=== PATIENT | male | born 1995 | race Caucasian/White ===

== ENCOUNTER 2023-07-10 13:25 | Outpatient (AMB) | payer OTHER, SELFPAY ==
--- NOTE | 2023-07-10 13:34 | A.OFFPC_ITS ---
Vital Signs 07/10/23 13:36 Height 5 ft 5 in Weight 243 lb BMI 40.4 BP 100/62 Blood Pressure Location Lt brachial Position Sitting Respiration 17 Pulse 80 Pulse Source Pulse Oximeter Pulse Oximetry (%) 99 Oxygen Delivery Method Room Air Intake Visit Reasons: Annual Exam Intake Note: Patient is here today for a physical. 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 Manager Required: No Accompanied by: Self / Same As Patient Allergies No Known Allergies Allergy (Verified 07/10/23 13:47) Medication List - Last Reconciled 07/10/23 by Keanu Torre PA-C clonidine HCl 0.1 mg PO TID lorazepam 1 mg PO BID PRN 5 days topiramate 25 mg PO BEDTIME Tobacco use date assessed: 07/10/23 Dental Screening Dental Screen Date: 07/10/23 Did you have a dental visit in the last 12 months?: No Did you have a dental problem in the last 6 months where you did not have access to dental care?: No Was dental information given to patient?: Yes HPI Annual Exam HPI Details Patient is a 28-year-old male here today for routine annual physical. Patient has a past medical history significant for bipolar disorder, GERD and tobacco dependency. .. Bipolar disorder: Seeing a Psychiatrist ( at [facility])- [place]. He continues on clonidine. Recently started on trazodone. He reports he has been suffering with lower lumbar spine pain for quite a while now, has seen specialist and gotten injections in the physical therapy though has not found it to be effective. He is interested in seeing pain management for pain reduction modality. Vaccines: Up-to-date with COVID, declines flu and tetanus vaccines [facility] Surgical History History of hand surgery History of aortoiliofemoral vascular bypass Family History Mother No problems noted. Father No problems noted. Social History (Updated 07/10/23 @ 13:52 by Keanu Torre PA-C) Housing: House Alcohol intake: current Alcohol intake frequency: holidays/special occasions only Patient Tobacco Use Status: Current everyday Tobacco user Cigarette Packs Per Day: 1 Cigarettes Per Day: 1 e-Cigarette/Vaping Use: Currently Using Second Hand Smoke Exposure: No Substance Use Type: Crack/Cocaine service: No Current occupational status: unemployed and disabled Cognitive needs: No Hearing needs: No Vision needs: No Questionnaire PHQ-9 Over the last 2 weeks, how often have you been bothered by any of the following problems? 1. Little interest or pleasure in doing things: more than half the days 2. Feeling down, depressed, or hopeless: more than half the days 3. Trouble falling or staying asleep, or sleeping too much: several days 4. Feeling tired or having little energy: more than half the days 5. Poor appetite or overeating: nearly every day 6. Feeling bad about yourself - or that you are a failure or have let yourself or your family down: nearly every day 7. Trouble concentrating on things, such as reading the newspaper or watching television: nearly every day 8. Moving or speaking so slowly that other people could have noticed. Or the opposite - being so fidgety or restless that you have been moving around a lot more than usual: more than half the days 9. Thoughts that you would be better off or of hurting yourself in some way: several days Total score: 19 Depression Screening Interpretation: Positive (Pt is not on treatment/CHD in [facility].) Depression Screening Follow-up: Existing condition Depression Screening Done: Yes 21486 - PHQ-9 Billing: Yes Source: Developed by Drs. Kenrcik Connolly, Ashley Hearn, Reji Up and colleagues, with an educational maria teresa from [employer]. Thrive Questionnaire Date Thrive assessed: 07/10/23 I am a: Patient What is your living situation today?: I have a steady place to live Within the past 12 months, did the food you bought not last and you didn't have the money to get more?: Never true Within the past 12 months, did you worry whether your food would run out before you got money to buy more?: Never true Do you have trouble paying for medicines?: No Do you have trouble getting transportation to medical appointments?: No Do you have trouble paying your heating and electricity bill?: No Do you have trouble taking care of your child, family member or friend?: No Do you have trouble with day-to-day activities such as bathing, preparing meals, shopping, managing finances, etc.?: No Are you currently unemployed and looking for a job?: No Are you interested in more education?: No Please select the resources that you would like help with: None Currently or been in a relationship where the following occur: no concerns reported THRIVE Score: 0 AUDIT C Alcohol Use Questionnaire (AUDIT-C) 1. How often do you have a drink containing alcohol?: 2-4 times a month 2. How many drinks containing alcohol do you have on a typical day when you are drinking?: 1 or 2 3. How often do you have six or more drinks on one occasion?: Never Total Score: 2 JOSE F-7 AMB Questionnaire JOSE F-7 Date JOSE F - 7 assessed: 07/10/23 Feeling nervous, anxious, or on edge: 3 = Nearly every day Not being able to stop or control worryin = Nearly every day Worrying too much about different things: 3 = Nearly every day Trouble relaxin = Nearly every day Being so restless that it is hard to sit still: 1 = Several days Becoming easily annoyed or irritable: 3 = Nearly every day Feeling afraid as if something awful might happen: 3 = Nearly every day Total JOSE F-7 score (0-4 normal; 5-9 mild; 10-14 moderate; 15-21 severe): 19 Source: Developed by Drs. Kenrick Connolly, Ashley Hearn, Reji Up and colleagues, with an educational maria teresa from [employer]. JOSE F-7 Assessment Billing JOSE F-7 Assessment Tool: JOSE F-7 Assessment 44242 Review of Systems Const Denies body aches, Denies chills, Denies excessive sweating, Denies fatigue, Denies fever(s) and Denies headache(s) Eyes Denies blurry vision ENT Denies dysphagia, Denies vertigo, Denies dizziness, Denies headache(s), Denies hearing loss and Denies tinnitus Card Denies chest pain, Denies chest pain with activity, Denies syncope, Denies irregular heart rhythm and Denies dyspnea Resp Denies chest congestion, Denies cough, Denies hemoptysis, Denies dyspnea and Denies wheezing GI Denies abdominal pain, Denies melena, Denies hematochezia, Denies coffee ground emesis, Denies dysphagia, Denies diarrhea, Denies nausea and Denies vomiting Denies difficulty urinating, Denies dysuria, Denies urinary frequency, Denies urinary hesitancy and Denies urinary urgency Musc Denies arthralgias, Denies limited range of motion, Denies muscle cramps and Denies muscle weakness Skin/Breast Denies rash and Denies skin ulcer Neuro Denies Abnormal speech present, Denies confusion, Denies vertigo, Denies dizziness, Denies syncope, Denies headache(s), Denies memory loss and Denies seizure-like activity Psych Denies anxiety, Denies confusion, Denies depression, Denies memory loss, Denies panic attacks and Denies paranoia Endo Denies excessive sweating, Denies fatigue, Denies flushing, Denies polydipsia and Denies polyuria Aller/Immun Denies wheezing Physical exam (Primary Care) Vital Signs: Last Vital Signs Pulse 80 07/10/23 13:36 Resp 17 07/10/23 13:36 BP 100/62 07/10/23 13:36 Pulse Ox 99 07/10/23 13:36 Oxygen Delivery Method Room Air 07/10/23 13:36 BMI result Body Mass Index 40.4 BMI Assessment/Plan discussion: High Tobacco/Smoking Status: Tobacco use Status Tobacco use date assessed 07/10/23 07/10/23 13:47 Patient Tobacco Use Status Current everyday Tobacco 07/10/23 13:52 Tobacco use type 05/31/22 10:06 e-Cigarette/Vaping Use Currently Using 07/10/23 13:52 Are you ready to quit: No Tobacco cessation counseling provided: Yes Items discussed: Nicotine replacement Relapse Prevention: discussed the importance of a supportive environment, discussed negative mood or depression after quitting, weight gain after smoking is common and discussed dietary, exercise and/or lifestyle changes Number of minutes spent counselin CPT code: 44661 - 4-10 Minutes PHQ-9: PHQ-9 Score PHQ-9: Total score 19 07/10/23 13:48 Depression Screening Interpretation: Positive (Pt is not on treatment/CHD in [facility].) Depression Screening Follow-up: Existing condition Thrive Assessment: Date of Thrive Assessment Date Thrive assessed 07/10/23 07/10/23 13:47 Currently or been in a relationship where the following occur: no concerns reported Const Other: Obese General: cooperative, comfortable, no acute distress, alert and awake; No confusion Orientation/consciousness: oriented to person, oriented to place, patient oriented x3 and No confusion HENMT Head: Yes normocephalic Ears: external ears normal and TM's normal bilaterally Face and sinus: No sinus tenderness Mouth: Normal oral and palatal mucosa present and tongue normal Teeth and gingiva: dentition normal and gingiva normal Throat: Yes posterior oropharynx normal, Yes tonsils normal and Yes uvula midlin e Eyes Conjunctivae: conjunctivae normal Sclerae: sclerae normal Pupils: Equal, round and reactive pupils present EOM: EOMs intact bilaterally Direct Ophthalmoscopy: No no photophobia Neck Neck: Yes no lymphadenopathy, No tender and Yes no JVD Thyroid: Thyroid normal Carotids: no bruits Chest Chest palpation & inspection: no tenderness Resp Effort & Inspection: normal respiratory effort, no audible wheezes, not labored and no stridor Auscultation: no crackles, no rales, no rhonchi and no wheezes Cardio Jugular venous distension: no JVD Rate: regular rate, not bradycardic and not tachycardic Rhythm: regular rhythm Bruits: no carotid bruits Peripheral pulses: Peripheral pulses 2+ throughout GI Inspection: Yes normal to inspection, No abdominal wall ecchymosis and No visible herniation Palpation (GI): Soft to palpation, nontender, no guarding, not rigid and No hepatosplenomegaly present Auscultation: normoactive bowel sounds General: Yes no CVA tenderness Back/Spine/Pelvis Other: SOME LIMITED RANGE OF MOTION LUMBAR SPINE DUE TO PAIN AND STIFFNESS Back: no CVA tenderness and No back tenderness Cervical Spine: cervical ROM normal Thoracic/Lumbar Spine: thoracic and lumbar spine normal to inspection, straight leg raise negative bilaterally, No thoraco-lumbar ROM limited and No lumbar spinal tenderness Skin Lesions: no lesions Rashes: no rashes Wounds: no wounds Neuro General: oriented to person, oriented to place, patient oriented x3, CN's II-XI intact bilaterally and No confusion Cranial nerves: Yes Equal, round and reactive pupils present and Yes Normal accommodation reflex present Cognition (Neuro): normal cognition Speech: No Abnormal speech present Gait exam (Neuro): Normal gait present Motor exam (neuro): 5/5 motor strength present throughout Extrem Right upper extremity: full ROM; no cyanosis Left upper extremity: full ROM; no cyanosis Right lower extremity: no edema Left lower extremity: no edema Psych Appearance: grossly normal Mental Status: mental status grossly normal Affect: normal affect Attitude: cooperative Thought process: Normal thought process present Assessment and Plan Assessment & Plan (1) Annual physical exam: Code(s): Z00.00 - Encounter for general adult medical examination without abnormal findings (2) Smoker: Code(s): F17.200 - Nicotine dependence, unspecified, uncomplicated Plan: Patient does understand he needs to quit smoking. He is willing to try nicotine patches to cut down on smoking. (3) Bipolar 1 disorder: Code(s): F31.9 - Bipolar disorder, unspecified Plan: Patient is followed by psychiatrist at [facility] and [place]. Continues on clonidine. Recently started on trazodone. Does report some brain fog on this medication. (4) Lumbar spondylosis with myelopathy: Code(s): M47.16 - Other spondylosis with myelopathy, lumbar region Plan: Patient has a chronic history of lower lumbar spine pain, does report recently feeling somewhat numbness in his lower extremity. Has done cortisone injection, physical therapy and infrared therapy all without much relief of his back pain. Will supply him with meloxicam to use for his lower back pain. He was looking for further treatment thus he is interested in seeing pain management for pain reduction modality. (5) Screening for diabetes mellitus (DM): Code(s): Z13.1 - Encounter for screening for diabetes mellitus Orders: Orders Comprehensive Animas. Panel Fast 07/10/23 Z13.1 - Encounter for screening for diabetes mellitus Referrals Pain Management Referral M47.16 - Other spondylosis with myelopathy, lumbar region Medications: New nicotine 1 patch transdermal DAILY 28 days 28 ea 0RF F17.200 - Nicotine dependence, unspecified, uncomplicated nicotine 1 patch transdermal Q24H 14 days 14 ea 0RF F17.200 - Nicotine dependence, unspecified, uncomplicated meloxicam 15 mg PO DAILY 15 days PRN 15 tabs 1RF pain (scale score 7-10) M47.16 - Other spondylosis with myelopathy, lumbar region Coding Level of Care Code Est Pt Prev Care 18-39y(62852) Diagnoses Annual physical exam Z00.00 Smoker F17.200 Bipolar 1 disorder F31.9 Lumbar spondylosis with myelopathy M47.16 Screening for diabetes mellitus (DM) Z13.1 Additional Codes JOSE F-7 Assessment Billing - JOSE F-7 Assessment Tool: JOSE F-7 Assessment 35892 ([id number]) Vital Signs *Quality* - CPT code: 00225 - 4-10 Minutes ([id number])
[2023-07-10 13:36] VITALS: BP 100/62; PULSE 80; RESP 17; O2SAT 99; BMI 40.4
== END 2023-07-10 14:13 | disposition home or self-care (01) ==
PROVIDERS: Visit Provider Physician Assistant
DX: Z00.00 Encounter for general adult medical examination without abnormal findings (principal); F17.200 Nicotine dependence, unspecified, uncomplicated; F31.9 Bipolar disorder, unspecified; M47.16 Other spondylosis with myelopathy, lumbar region; Z13.1 Encounter for screening for diabetes mellitus
CPT/HCPCS: 99395

== ENCOUNTER 2023-07-18 13:51 | Outpatient (AMB) | payer OTHER, SELFPAY ==
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
[2023-07-18 14:04] VITALS: BP 141/76; PULSE 75; RESP 22; O2SAT 93; BMI 40.2
== END 2023-07-18 14:33 | disposition home or self-care (01) ==
PROVIDERS: PCP Physician Assistant; Visit Provider Registered Nurse Emergency
DX: M47.816 Spondylosis without myelopathy or radiculopathy, lumbar region (principal)
CPT/HCPCS: 99204

== ENCOUNTER → 2023-07-18 13:51 | Outpatient (BNVA) | payer OTHER, SELFPAY | PROVIDERS: PCP Physician Assistant; Visit Provider Registered Nurse Emergency | DX: M47.816 Spondylosis without myelopathy or radiculopathy, lumbar region (principal) | CPT/HCPCS: 99202 ==

== ENCOUNTER 2024-09-14 14:49 | Outpatient (AMB) | payer MEDICARE, MEDICAID, SELFPAY ==
--- NOTE | 2024-09-14 14:55 | A.OFFPC_ITS ---
Vital Signs 09/14/24 14:57 Height 5 ft 5 in Weight 262 lb 4 oz BMI 43.6 BP 130/70 Blood Pressure Location Lt brachial Position Sitting Pulse 88 Pulse Source Pulse Oximeter Temp 97.3 F Temp Source Temporal Artery Scan Pulse Oximetry (%) 100 Oxygen Delivery Method Room Air Intake Visit Reasons: Rsch from 07/08 - Regular Visit Intake Note: Patient is here to follow up on Chronic back pain, IBS. 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 Accompanied by: Self / Same As Patient Allergies No Known Allergies Allergy (Verified 09/14/24 14:56) Medication List - Last Reconciled 09/14/24 by Keanu Torre PA-C clonidine HCl 0.1 mg PO TID lorazepam 1 mg PO BID PRN 5 days meloxicam 15 mg PO DAILY PRN 15 days methocarbamol 500 mg PO TID PRN topiramate 25 mg PO BEDTIME Tobacco use date assessed: 09/14/24 Dental Screening Dental Screen Date: 09/14/24 Did you have a dental visit in the last 12 months?: No Did you have a dental problem in the last 6 months where you did not have access to dental care?: No Was dental information given to patient?: Patient declined HPI Rsch from 07/08 - Regular Visit HPI Details Patient is a 9-year-old male here today for follow-up visit. Patient has a past medical history significant for bipolar disorder, GERD , right hand neuropathy and tobacco dependency. 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 The nerve injury was incurred during an incident involving punching a window, resulting in functional limitations predominantly affecting his thumb and index finger. Despite his dominant hand being affected, the patient retains adequate control for driving, particularly using a manual transmission. .. Bipolar disorder: Seeing a Psychiatrist ( at [facility])- [place]. He continues on clonidine. Recently started on trazodone. He feels his mental health he is stable at this time. Vaccines: Up-to-date with COVID, declines flu and tetanus vaccines [facility] Surgical History History of hand surgery History of aortoiliofemoral vascular bypass Family History Mother No problems noted. Father No problems noted. Social History Housing: House Alcohol intake: current Alcohol intake frequency: a few times a week Patient Tobacco Use Status: Current everyday Tobacco user Tobacco use type: Cigarette Cigarette Packs Per Day: 0.5 Cigarettes Per Day: 10 e-Cigarette/Vaping Use: Currently Using Second Hand Smoke Exposure: Yes Substance Use Type: Crack/Cocaine service: No Current occupational status: unemployed and disabled Cognitive needs: No Hearing needs: No Vision needs: No Questionnaire PHQ-9 Over the last 2 weeks, how often have you been bothered by any of the following problems? 1. Little interest or pleasure in doing things: more than half the days 2. Feeling down, depressed, or hopeless: several days 3. Trouble falling or staying asleep, or sleeping too much: more than half the days 4. Feeling tired or having little energy: nearly every day 5. Poor appetite or overeating: nearly every day 6. Feeling bad about yourself - or that you are a failure or have let yourself or your family down: nearly every day 7. Trouble concentrating on things, such as reading the newspaper or watching television: nearly every day 8. Moving or speaking so slowly that other people could have noticed. Or the opposite - being so fidgety or restless that you have been moving around a lot more than usual: nearly every day 9. Thoughts that you would be better off or of hurting yourself in some way: not at all Total score: 20 Depression Screening Interpretation: Positive Depression Screening Follow-up: Existing condition and In treatment Depression Screening Done: Yes 56376 - PHQ-9 Billing: Yes Source: Developed by Drs. Kenrick Connolly, Ashley Hearn, Reji Up and colleagues, with an educational maria teresa from [employer]. Thrive Questionnaire Date Thrive assessed: 09/14/24 I am a: Patient What is your living situation today?: I have a steady place to live Within the past 12 months, did the food you bought not last and you didn't have the money to get more?: Never true Within the past 12 months, did you worry whether your food would run out before you got money to buy more?: Never true Do you have trouble paying for medicines?: No Do you have trouble getting transportation to medical appointments?: No Do you have trouble paying your heating and electricity bill?: No Do you have trouble taking care of your child, family member or friend?: No Do you have trouble with day-to-day activities such as bathing, preparing meals, shopping, managing finances, etc.?: No Are you currently unemployed and looking for a job?: No Are you interested in more education?: No Please select the resources that you would like help with: None Currently or been in a relationship where the following occur: No concerns reported THRIVE Score: 0 AUDIT C Alcohol Use Questionnaire (AUDIT-C) 1. How often do you have a drink containing alcohol?: Never Total Score: 0 JOSE F-7 AMB Questionnaire JOSE F-7 Date JOSE F - 7 assessed: 09/14/24 Feeling nervous, anxious, or on edge: 1 = Several days Not being able to stop or control worryin = Several days Worrying too much about different things: 1 = Several days Trouble relaxin = Several days Being so restless that it is hard to sit still: 1 = Several days Becoming easily annoyed or irritable: 1 = Several days Feeling afraid as if something awful might happen: 1 = Several days Total JOSE F-7 score (0-4 normal; 5-9 mild; 10-14 moderate; 15-21 severe): 7 Source: Developed by Drs. Kenrick Connolly, Ashley Hearn, Reji Up and colleagues, with an educational maria teresa from [employer]. JOSE F-7 Assessment Billing JOSE F-7 Assessment Tool: JOSE F-7 Assessment 59425 Review of Systems Const Denies headache(s) Eyes Denies loss of vision ENT Denies vertigo, Denies dizziness, Denies headache(s) and Denies sore throat Card Denies chest pain, Denies leg edema and Denies lightheadedness Resp Denies cough, Denies hemoptysis and Denies wheezing GI Denies abdominal pain, Denies melena, Denies constipation, Denies diarrhea and Denies vomiting Denies dysuria, Denies urinary frequency and Denies urinary urgency Musc Denies arthralgias, Denies joint swelling, Denies numbness and Denies tingling Neuro Denies Abnormal speech present, Denies behavioral changes, Denies vertigo, Denies dizziness, Denies headache(s), Denies loss of vision, Denies memory loss, Denies numbness and Denies tingling Psych Denies anxiety, Denies behavioral changes, Denies depression, Denies memory loss and Denies panic attacks Dm/Lymph Denies easy bleeding and Denies easy bruising Aller/Immun Denies wheezing Physical exam (Primary Care) Vital Signs: Last Vital Signs Temp 97.3 F 09/14/24 14:57 Pulse 88 09/14/24 14:57 BP 130/70 09/14/24 14:57 Pulse Ox 100 09/14/24 14:57 Oxygen Delivery Method Room Air 09/14/24 14:57 BMI result Body Mass Index 43.6 Tobacco/Smoking Status: Tobacco use Status Tobacco use date assessed 09/14/24 09/14/24 15:03 Patient Tobacco Use Status Current everyday Tobacco 09/14/24 15:03 Tobacco use type Cigarette 09/14/24 15:03 e-Cigarette/Vaping Use Currently Using 09/14/24 15:03 PHQ-9: PHQ-9 Score PHQ-9: Total score 20 09/14/24 15:27 Depression Screening Interpretation: Positive Depression Screening Follow-up: Existing condition and In treatment Thrive Assessment: Date of Thrive Assessment Date Thrive assessed 09/14/24 09/14/24 15:03 Currently or been in a relationship where the following occur: No concerns reported Const General: healthy appearing, no acute distress, alert and awake Nutritional Appearance: well nourished Orientation/consciousness: oriented to person, oriented to place and oriented to time HENMT Ears: TM's normal bilaterally General nose exam: Normal nasal mucous membranes and turbinates present Eyes Conjunctivae: conjunctivae normal Sclerae: sclerae normal Pupils: Equal, round and reactive pupils present Neck Neck: Yes no lymphadenopathy and Yes no JVD Thyroid: Thyroid normal Carotids: no bruits Resp Effort & Inspection: normal respiratory effort and not tachypneic Auscultation: no crackles, no rales, no rhonchi and no wheezes Cardio Rate: regular rate Rhythm: regular rhythm Heart sounds: no murmurs and normal S1 and S2 GI Palpation (GI): Soft to palpation, nontender, no hepatomegaly and no splenomegaly Auscultation: normal bowel sounds Skin General skin exam: no rashes or lesions noted and dry skin Neuro General: oriented to person, oriented to place and oriented to time Cranial nerves: Yes Equal, round and reactive pupils present Speech: No Abnormal speech present Gait exam (Neuro): Normal gait present Motor exam (neuro): no tremor noted Extrem Other: RIGHT HAND: 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 PATIENT ABLE TO FLEX AND EXTEND 5TH AND 4TH DIGIT, UNABLE TO FLEX OR EXTEND 1ST 2ND OR 3RD DIGIT. Right upper extremity: full ROM Left upper extremity: full ROM Right lower extremity: full ROM; no edema Left lower extremity: full ROM; no edema Psych Mental Status: mental status grossly normal Speech and movement: Normal speech and movement present Affect: normal affect Attitude: cooperative Thought process: Normal thought process present Coding Level of Care Code Est Pt Level 4 (70628) Diagnoses Neuropathy of right hand G56.91 Bipolar 1 disorder F31.9 Smoker F17.200 Additional Codes JOSE F-7 Assessment Billing - JOSE F-7 Assessment Tool: JOSE F-7 Assessment 56256 ([id number]) PHQ-9 - 50093 - PHQ-9 Billing: Yes ([id number]) Assessment & Plan Assessment & Plan (1) Neuropathy of right hand: Code(s): G56.91 - Unspecified mononeuropathy of right upper limb Category: Medical Plan: The patient experienced right-hand nerve damage affecting the thumb and index finger following trauma. 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 Monitoring of hand function and rehabilitation will continue. (2) Bipolar 1 disorder: Code(s): F31.9 - Bipolar disorder, unspecified Category: Medical Plan: Patient continues to follow psychiatry who manage his mental health medications. He feels he is stable from a mental health point of view (3) Smoker: Code(s): F17.200 - Nicotine dependence, unspecified, uncomplicated Category: Social Hx Plan: Patient continues to smoke cigarettes. He finds it very difficult to quit. He is willing to try nicotine patches to help him quit smoking. Orders: Orders Complete Blood Count no Diff 09/14/24 Z13.1 - Encounter for screening for diabetes mellitus Comprehensive [place]. Panel Fast 09/14/24 Z13.1 - Encounter for screening for diabetes mellitus Medications: New nicotine 1 patch transdermal DAILY 14 ea 0RF 14 days F17.200 - Nicotine dependence, unspecified, uncomplicated nicotine 1 patch transdermal DAILY 14 ea 0RF 14 days F17.200 - Nicotine dependence, unspecified, uncomplicated
[2024-09-14 14:57] VITALS: BP 130/70; PULSE 88; TEMP 36.3; O2SAT 100; BMI 43.6
== END 2024-09-14 15:23 | disposition home or self-care (01) ==
LOC: HO.HMCH 14:50
PROVIDERS: PCP Physician Assistant; Visit Provider Physician Assistant
DX: G56.91 Unspecified mononeuropathy of right upper limb (principal); F31.9 Bipolar disorder, unspecified; F17.200 Nicotine dependence, unspecified, uncomplicated

== ENCOUNTER → 2024-09-14 14:49 | Outpatient (BNVA) | payer MEDICARE, MEDICAID, SELFPAY | PROVIDERS: PCP Physician Assistant; Visit Provider Physician Assistant | DX: G56.91 Unspecified mononeuropathy of right upper limb (principal); F31.9 Bipolar disorder, unspecified; F17.200 Nicotine dependence, unspecified, uncomplicated; Z71.6 Tobacco abuse counseling | CPT/HCPCS: 96127; 99212 ==